=== PATIENT | male | born 1990 | race Caucasian/White ===

== ENCOUNTER 2016-04-30 20:55 | Emergency (ER) | payer OTHER ==
[~2016-04-30] VITALS: Ht 177.8 cm; Wt 76.7 kg
[~2016-04-30 20:55] MED LIST: AUGMENTIN875 MG PO; DELTASONE20 M1 PO; LEXAPRO10 MG PO; MOTRIN800 MG PO; PRILOSEC20 MG PO; SUBOXONE 8 MG-1 EAC2 SL
[2016-04-30 21:41] LABS: HEMATOCRIT 42.3 % (38.0-50.0); MCH 29.7 PG (29.0-34.0); MCHC 33.8 G/DL (30.0-36.0); MCV 87.9 FL (86-99); MEAN PLAT.VOLUME 9.9 uM^3 (9.0-12.4); PLATELET COUNT 192 K/uL (156-360); RBC DIS.WIDTH-CV 12.1 % (11.8-14.6); RBC DIS.WIDTH-SD 38.9 % (39-53); RED BLOOD COUNT 4.81 M/uL (4.00-5.50)
[2016-04-30 21:50] LABS: CHLORIDE 105 mEq/L (99-109); POTASSIUM 3.6 mEq/L (3.7-5.4); SODIUM 139 mEq/L (136-147)
[2016-04-30 21:52] LABS: GLUCOSE 98 mg/dL (70-99)
[2016-04-30 21:54] LABS: ANION GAP 8 MEQ/L (2-14); TOTAL BILIRUBIN 0.2 mg/dL (0.0-1.0)
[2016-04-30 21:56] LABS: ALKALINE PHOSPHATASE 98 IU/L (3-129); GFR ESTIMATE (CALCULATED) > 59 mL/min/
[2016-04-30 21:57] LABS: UREA NITROGEN (BUN) 10 mg/dL (9-23)
[2016-04-30 21:58] LABS: DIRECT BILIRUBIN 0.1 mg/dL (0.0-0.3)
[2016-04-30 22:00] LABS: LIPASE 22 U/L (1.0-51.0)
[2016-04-30] MEDS ORDERED: NAPROSYN500 MG PO (22:46)
[2016-04-30] MEDS ORDERED: MEDROL DOSEPAK4 MG PO (22:46)
[2016-04-30 23:10] VITALS: BP 122/76
== END 2016-04-30 23:12 | disposition home or self-care (01) ==
LOC: EME 20:55
PROVIDERS: Emergency Medicine
DX: S39.012A Strain of muscle, fascia and tendon of lower back, initial encounter (principal); X58.XXXA Exposure to other specified factors, initial encounter; R10.9 Unspecified abdominal pain; R53.83 Other fatigue; F11.99 Opioid use, unspecified with unspecified opioid-induced disorder; F17.200 Nicotine dependence, unspecified, uncomplicated
CPT/HCPCS: 71020; 74176; 80048; 80076; 83690; 85027; 99281; 99283